=== PATIENT | female | born 1975 | race Caucasian/White ===

== ENCOUNTER 2018-04-12 11:48 | Emergency (ER) | payer SELFPAY ==
--- NOTE | 2018-04-12 12:06 | ED Physician Documentation ---
PD HPI LOWER EXT INJURY - Stated complaint Stated Complaint: LEFT ANKLE INJ - Chief complaint Chief Complaint: Ext Problem - History obtained from History obtained from: Patient - History of Present Illness PD HPI LOW EXT INJURY LOCATION: Left, Ankle (Almost 2 months ago she had a trip and fall at work. She injured her left ankle. It was slowly getting better and then started running on it again over the running. Most of the pain is over the medial joint line of the left ankle. She injured her knee at the time but that is all better as well.) Review of Systems Constitutional: reports: Reviewed and negative Nose: reports: Reviewed and negative Throat: reports: Reviewed and negative PD PAST MEDICAL HISTORY - Present Medications Home Medications: Ambulatory Orders Medication Instructions Recorded Confirmed Hydrocodone/Acetaminophen 1 - 2 each PO Q6H PRN #14 tablet 04/12/18 [Hydrocodon-Acetaminophen 5-325] Ibuprofen [Motrin] 800 mg PO Q8H PRN #30 tablet 04/12/18 - Allergies Allergies/Adverse Reactions: Allergies Allergy/AdvReac Type Severity Reaction Status Date / Time No Known Drug Allergies Allergy Verified 04/12/18 11:55 PD ED PE NORMAL - Vitals Vital signs reviewed: Yes - General General: Alert and oriented X 3, No acute distress - Extremities Extremities: Other (She is tender over the medial malleolus and just superior to that of the left ankle. There is no lateral tenderness or foot tenderness. No proximal fibular or knee tenderness. There is no significant swelling. Perfusion is normal.) - Neuro Neuro: Alert and oriented X 3, Normal speech Results - Vitals Vitals: Vital Signs - 24 hr 04/12/18 11:52 Temperature 34.4 C L Heart Rate 70 Respiratory 16 Rate Blood Pressure 126/68 O2 Saturation 100 Oxygen O2 Source Room air - Rads (name of study) L ankle Radiology: EMP read contemporaneously (Subacute oblique fracture of the distal tibia above the mortise and a subacute linear fracture, Rock B of the lateral malleolus.) PD MEDICAL DECISION MAKING - ED course ED course: This is a 43-year-old woman who injured herself almost 2 months ago and as it turns out broke her ankle which really only started hurting when she tried to start running on it again. There are good signs of healing on the x-ray so I think she can walk and bear weight in the boot pending orthopedic follow-up. She has a 5-day trip to [place] in the next few days, but she will not be skiing or doing anything very active. Departure - Departure Disposition: 01 Home, Self Care Clinical Impression: Bimalleolar ankle fracture Qualifiers: Encounter type: initial encounter Fracture type: closed Laterality: left Qualified Code(s): S82.842A - Displaced bimalleolar fracture of left lower leg, initial encounter for closed fracture Condition: Good Record reviewed to determine appropriate education?: Yes Prescriptions: Hydrocodone/Acetaminophen [Hydrocodon-Acetaminophen 5-325] 1 - 2 each PO Q6H PRN #14 tablet PRN Reason: pain Ibuprofen [Motrin] 800 mg PO Q8H PRN #30 tablet PRN Reason: PAIN &/OR FEVER Comments: As discussed it seems like he actually broke her ankle 2 months ago and you have been walking on it ever since, good for you. That said he should not run on it anymore. I think you can continue to walk and bear weight in the boot but she is to follow-up with an orthopedist near home on return from your upcoming trip. Take the copy of the x-rays on CD with you. Walk as little as possible and keep it elevated.
--- NOTE | 2018-04-12 12:52 | XRAY Report ---
Reason: L ankle inj Procedure Date: 04/12/2018 Accession Number: [id number] / [id number] Procedure: XR - Ankle 3 View LT CPT Code: FULL RESULT: EXAM: LEFT ANKLE RADIOGRAPHY EXAM DATE: 04/12/2018 12:34 PM. CLINICAL HISTORY: Left ankle injection 8 weeks ago with little interval improvement. Recent exacerbation of pain with resumption of running. COMPARISON: None. TECHNIQUE: 3 views. FINDINGS: Bones: There is a subacute nondisplaced oblique fracture distal tibial metaphysis with evidence of healing change (indistinctness of the fracture line, band-like trabecular density and focal bone periosteal new bone along the medial cortex at the fracture line). A similar incomplete transverse band of trabecular density is noted on the lateral radiograph of the distal tibia above the physis. There is also transverse band of trabecular density across the mid lateral malleolus; both of these additional areas are consistent with additional healing subacute fractures. Joints: Normal. No effusion. No subluxations. The ankle mortise is normally aligned. Soft Tissues: Normal. No soft tissue swelling. IMPRESSION: Subacute nondisplaced fractures as described above with healing changes. Results discussed in person with Dr. Milton at 1240 hrs. RADIA
[2018-04-12 13:05] VITALS: BP 124/66
== END 2018-04-12 13:04 | disposition home or self-care (01) ==
LOC: ED 11:48
DX: S82.842A Displaced bimalleolar fracture of left lower leg, initial encounter for closed fracture (principal); X58.XXXA Exposure to other specified factors, initial encounter; Y93.02 Activity, running; Z91.81 History of falling
CPT/HCPCS: 99283

== ENCOUNTER 2022-05-28 22:27 | Emergency (ER) | payer MEDICAID ==
--- NOTE | 2022-05-29 00:02 | ED Physician Documentation ---
History of Present Illness - Stated complaint Stated Complaint: COUGH - Chief complaint Chief Complaint: Resp - History obtained from History obtained from: Patient - Additonal information Additional information: HPI from patient. Patient has had cough x 2 weeks for which she saw PMD 5 days ago, was prescribed guaifenesin / codeine and proair MDI. Patient presents at this time due to sudden onset of right lower lateral chest pain. This began suddenly tonight when she was coughing. The pain is worse with movement as well as palpation. There is not a pleuritic component. She does not feel short of breath. Patient says she had a low-grade fever towards the beginning of this illness, but has not had a fever since approximately 10 days ago. Review of Systems Constitutional: denies: Fever Cardiac: reports: Chest pain / pressure. denies: Palpitations Respiratory: reports: Cough. denies: Dyspnea, Hemoptysis, Wheezing PD PAST MEDICAL HISTORY - Past Medical History Past Medical History: No - Past Surgical History Past Surgical History: No - Present Medications Home Medications: Ambulatory Orders Medication Instructions Recorded Confirmed Hydrocodone/Acetaminophen 1 - 2 each PO Q6H PRN #14 tablet 04/12/18 [Hydrocodon-Acetaminophen 5-325] Ibuprofen [Motrin] 800 mg PO Q8H PRN #30 tablet 04/12/18 - Allergies Allergies/Adverse Reactions: Allergies Allergy/AdvReac Type Severity Reaction Status Date / Time No Known Drug Allergies Allergy Verified 05/28/22 22:44 - Social History Does the pt smoke?: No Smoking Status: Never smoker Does the pt drink ETOH?: No Does the pt have substance abuse?: No - Immunizations Immunizations are current?: Yes PD ED PE NORMAL - Vitals Vital signs reviewed: Yes - General General: Alert and oriented X 3, No acute distress, Well developed/nourished - Cardiac Cardiac: RRR - Respiratory Respiratory: No respiratory distress, Other (course rhonchi right hemithorax) - Free text exam Free text exam: no crepitus right chest wall Results - Vitals Vitals: Vital Signs - 24 hr 05/28/22 05/28/22 05/29/22 22:38 23:48 00:18 Temperature 37.2 C Heart Rate 112 H 96 97 Respiratory 18 18 18 Rate Blood Pressure 122/79 117/71 111/76 O2 Saturation 96 100 96 Oxygen O2 Source Room air - Rads (name of study) chest xray with right ribs Radiology: Prelim report reviewed, See rad report PD Medical Decision Making - ED course Complexity details: reviewed results, re-evaluated patient, considered differential, d/w patient ED course: Chest x-ray is negative for rib fracture. There is no pneumothorax. There is an early right basilar infiltrate suggestive of an interstitial pneumonia. I discussed the results of the x-rays with the patient. Because the x-rays are suggestive of early right basilar interstitial pneumonia, she is given a dose of azithromycin to the emergency department and a prescription for 4 more days of 250 mg daily azithromycin is provided. We discussed options for medications for pain control, which is her chief co mplaint. Patient says she is allergic to codeine, with the allergy being hives. However, she is currently taking guaifenesin with codeine; she says that if she just takes half of the dose prescribed, she does not have allergy or untoward side effect. Of course, this is not providing adequate relief of the pain that she has been experiencing since earlier this evening. We discussed tramadol, Vicodin, and Percocet. She says she has had tramadol in the past, although has not found that it was particular helpful for pain. She does not recall ever having Vicodin nor Percocet. After further discussion, mutual decision reached to trial Vicodin for pain control, which would also have additional potential benefit of cough suppression. She is given a take-home pack of Vicodin, and a prescription for Vicodin is also provided. Return precautions discussed. Departure - Departure Disposition: 01 Home, Self Care Discharge Date/Time: 05/29/22 04:40
[2022-05-29 00:19] VITALS: BP 111/76
[2022-05-29] MEDS ORDERED: AZITHROMYCIN 250 MG TABLET PO ONE (03:10)
[2022-05-29] MEDS ORDERED: HYDROcod/ACET 5/325 Prepack 4 PO ONE (03:11)
[2022-05-29] MEDS ORDERED: methocarbamoL 500 MG TABLET PO ONE (03:11)
--- NOTE | 2022-05-29 09:15 | XRAY Report ---
PROCEDURE: Ribs w/PA Chest RT INDICATIONS: right chest pain TECHNIQUE: 3 views of the right ribs were acquired, along with a single view chest. COMPARISON: None FINDINGS: Surgical changes and devices: None. Bones and chest wall: No fractures or dislocations. No suspicious bony lesions. Overlying soft tis sues appear unremarkable. Lungs and pleura: Mild right basilar atelectasis and or infiltrate Mediastinum: Mediastinal contours appear normal. Heart size is normal. IMPRESSION: Mild right basilar atelectasis and or infiltrate No rib fracture Note: Final report is concordant with preliminary interpretation provided by [facility] Reviewed by: Billy Fatima MD on 05/29/2022 8:14 AM [place] Approved by: Billy Fatima MD on 05/29/2022 8:14 AM [facility] Station ID: [id number]
== END 2022-05-29 04:40 | disposition home or self-care (01) ==
LOC: ED 22:27
DX: R07.89 Other chest pain (principal); R05.9 Cough, unspecified
CPT/HCPCS: 71101; 99283; 99284; A9270

== ENCOUNTER 2023-05-15 06:45 | Emergency (ER) | payer MEDICAID ==
--- NOTE | 2023-05-15 07:02 | ED Physician Documentation ---
PD HPI ABD PAIN - Stated complaint Stated Complaint: ABD/BACK PX - Chief complaint Chief Complaint: Abd Pain - History obtained from History obtained from: Patient - History of Present Illness Timing - onset: Last night Timing - duration: Hours (9) Timing - details: Abrupt onset, Still present, Constant Quality: Cramping, Aching, Pain Location: Epigastric, LUQ Radiation: Upper back Improved by: No: Vomiting Worsened by: Eating Associated symptoms: Nausea, Vomiting, Diarrhea. No: Fever, Constipation Similar symptoms before: Has not had sx before Recently seen: Not recently seen Review of Systems Constitutional: denies: Fever, Chills Nose: denies: Rhinorrhea / runny nose, Congestion Throat: denies: Sore throat Respiratory: denies: Cough GI: denies: Diarrhea, Bloody / black stool : denies: Dysuria, Frequency PD PAST MEDICAL HISTORY - Past Medical History Past Medical History: Yes Cardiovascular: None Respiratory: None Endocrine/Autoimmune: None GI: GERD, Other (no prior pancreatic nor gallbladder problems. ) Other Past Medical History: Lyme disease - Past Surgical History Past Surgical History: Yes - Present Medications Home Medications: Ambulatory Orders Medication Instructions Recorded Confirmed Estradiol-Noreth 0.5 mg PO DAILY 05/15/23 Famotidine [Pepcid] 20 mg PO DAILY #20 tablet 05/15/23 Gabapentin [Neurontin] 100 mg PO BID 05/15/23 05/15/23 HYDROcod/ACETAM 5/325 [Meherrin 5/325] 1 ea PO Q6H PRN #18 tablet 05/15/23 Meloxicam [Mobic] 7.5 mg PO BID 10 Days #20 tablet 05/15/23 Ondansetron Odt [Zofran] 4 mg TL Q6H PRN #10 tablet 05/15/23 - Allergies Allergies/Adverse Reactions: Allergies Allergy/AdvReac Type Severity Reaction Status Date / Time No Known Drug Allergies Allergy Verified 05/15/23 06:55 - Living Situation Living Arrangement: reports: At home (she is visiting her parents this weekend, returning home today to [facility].) - Social History Does the pt smoke?: No Smoking Status: Never smoker Does the pt drink ETOH?: Yes ETOH Use: Beer (occasional 1-2 drinks, none daily. Had not had any over this weekend. ), Liquor Does the pt have substance abuse?: No - Immunizations Immunizations are current?: Yes - POLST Patient has POLST: No PD ED PE NORMAL - Vitals Vital signs reviewed: Yes - General General: Alert and oriented X 3, Well developed/nourished, Other (appears uncomfortable with guarding upper abd. ) - Neck Neck: Supple, no meningeal sign, No adenopathy - Cardiac Cardiac: RRR, No murmur - Respiratory Respiratory: No respiratory distress, Clear bilaterally - Abdomen Abdomen: Soft, Non distended, Other (tender left upper abd and epigastric mainly with local guarding and some percussion tenderness. RUQ itself is less tender. ). No: Normal bowel sounds (decreased) - Derm Derm: Normal color, Warm and dry - Extremities Extremities: No edema, No calf tenderness / cord - Neuro Neuro: Alert and oriented X 3, No motor deficit, Normal speech Results - Vitals Vitals: Vital Signs - 24 hr 05/15/23 05/15/23 05/15/23 06:50 08:50 10:00 Temperature 36.1 C L Heart Rate 86 57 L 60 Respiratory 16 16 16 Rate Blood Pressure 118/73 111/66 122/78 O2 Saturation 100 98 98 Oxygen O2 Source Room air - Labs Labs: Laboratory Tests 05/15/23 05/15/23 05/15/23 07:08 07:08 07:08 WBC 6.6 RBC 4.09 L Hgb 12.6 Hct 39.1 MCV 95.6 MCH 30.8 MCHC 32.2 RDW 12.2 Plt Count 229 MPV 9.4 Neut # (Auto) 3.8 Lymph # (Auto) 2.1 [place] # (Auto) 0.5 Eos # (Auto) 0.2 Baso # (Auto) 0.0 Absolute Nucleated RBC 0.00 Nucleated RBC % 0.0 Sodium 136 Potassium 3.5 Chloride 104 Carbon Dioxide 23 Anion Gap 9.0 BUN 17 Creatinine 0.7 Estimated GFR (MDRD) 89 Glucose 109 H Calcium 9.0 Total Bilirubin 0.4 AST 17 ALT 17 Alkaline Phosphatase 66 Troponin I High Sens 2.3 Total Protein 6.9 Albumin 4.2 Globulin 2.7 Albumin/Globulin Ratio 1.6 Triglycerides Lipase 129 H Urine Color Urine Clarity Urine pH Ur Specific [place] Urine Protein Urine Glucose (UA) Urine Ketones Urine Occult Blood Urine Nitrite Urine Bilirubin Urine Urobilinogen Ur Leukocyte Esterase Ur Microscopic Review Urine Culture Comments 05/15/23 05/15/23 07:08 08:15 WBC RBC Hgb Hct MCV MCH MCHC RDW Plt Count MPV Neut # (Auto) Lymph # (Auto) [place] # (Auto) Eos # (Auto) Baso # (Auto) Absolute Nucleated RBC Nucleated RBC % Sodium Potassium Chloride Carbon Dioxide Anion Gap BUN Creatinine Estimated GFR (MDRD) Glucose Calcium Total Bilirubin AST ALT Alkaline Phosphatase Troponin I High Sens Total Protein Albumin Globulin Albumin/Globulin Ratio Triglycerides 67 Lipase Urine Color YELLOW Urine Clarity CLEAR Urine pH 6.0 Ur Specific [place] 1.010 Urine Protein NEGATIVE Urine Glucose (UA) NEGATIVE Urine Ketones NEGATIVE Urine Occult Blood NEGATIVE Urine Nitrite NEGATIVE Urine Bilirubin NEGATIVE Urine Urobilinogen 0.2 (NORMAL) Ur Leukocyte Esterase NEGATIVE Ur Microscopic Review NOT INDICATED Urine Culture Comments NOT INDICATED - Rads (name of study) abd/pelvic CT Relevant Findings:: Prelim report reviewed (normal pancreas. Mild fat stranding left splenic flexure area of colon c/w colitis. No diverticula noted. Gallbladder normal. ), EMP independent interpretation of test PD Medical Decision Making - ED course Complexity details: reviewed results (lipase some elevated at 127. Normal LFTs and alk phos. CT showing some LUQ colitis, which fits with her area of pain.), re-evaluated patient (no improvement with GI cocktail, so seeming less likely gastritis, and has other findings to account for pain: lipase and colitis on CT. She does not have reason for pancreatitis and CT does not show that. So I think just blip in the lab, and main Dx presume focal colitis. ), considered differential (consider gastritis, ulcer, pancreatic, but most pain is LUQ so diverticulitis or colitis. No diarrhea. ), d/w patient Departure - Departure Disposition: Home, Self Care Clinical Impression: Acute upper abdominal pain, Elevated lipase, Acute colitis, Pancreatitis Condition: Stable Record reviewed to determine appropriate education?: Yes Prescriptions: Meloxicam [Mobic] 7.5 mg PO BID 10 Days #20 tablet HYDROcod/ACETAM 5/325 [Meherrin 5/325] 1 ea PO Q6H PRN #18 tablet PRN Reason: Pain Famotidine [Pepcid] 20 mg PO DAILY #20 tablet Ondansetron Odt [Zofran] 4 mg TL Q6H PRN #10 tablet PRN Reason: Nausea / Vomiting Comments: Your CT scan showed some inflammation around the colon at the left upper corner (splenic flexure) which is the area that you are hurting. This can be a local inflammation. Sometimes it is an early infection. They did not comment on any diverticula or such in the area. Comment treatment for this initially would be clear to bland food diet and soft food. Mild stool softener such as docusate so there is less stool pressure and an anti-inflammatory such as ibuprofen/naproxen/meloxicam regularly for several days to week. To that add Tylenol every 4-6 hours if needed for pain and hydrocodone/acetaminophen if needed for worse pain. On your blood tests there was some elevation of your pancreatic enzyme called lipase. It was elevated to 127 with normal in our lab being up to 82 so only mildly elevated in comparison to what we see with a more significant pancreatitis. However some inflammation of the pancreas could also be causing your pain 2. There is no obvious cause for this based on your history. It may be just elevated mildly because of inflammation nearby in the colon as noted in the CT scan. The CT does not show any pancreatic inflammation. The treatment for mild pancreatitis would be clear liquid and decreased fat food for several days to week as well as the anti-inflammatories and pain medicine as noted above, so common treatment with the colitis. This sounds more likely to be from the colitis. If you have consistent pain despite the treatment or you have increasing pain, fever, vomiting, diarrhea or bloody stools to indicate worsening colitis, then follow-up with your primary care or the walk-in or such in your home area as we may need to add other medicines, in particular antibiotics. Guidelines typically suggest not doing antibiotics initially for mild cases. I could not find any of your pharmacies in the [facility] on my electronic prescribing list so I printed out the prescription for you. If there are issues with the pharmacy, have them call or show them this note and hopefully they would fill it since I was unable to do it electronically. Forms: PCP List Discharge Date/Time: 05/15/23 10:03
[2023-05-15 07:23] LABS: BASOPHILS % (AUTO) 0.5 %; EOSINOPHILS # (AUTO) 0.2 10^3/uL (0.0-0.7); EOSINOPHILS % (AUTO) 3.1 %; HCT - HEMATOCRIT 39.1 % (37.0-47.0); HGB - HEMOGLOBIN 12.6 g/dL (12.0-16.0); LYMPHOCYTES # (AUTO) 2.1 10^3/uL (1.5-3.5); LYMPHOCYTES % (AUTO) 31.8 %; MEAN CORPUSCULAR HEMOGLOBIN 30.8 pg (27.0-31.0); MEAN CORPUSCULAR HGB CONC 32.2 g/dL (32.0-36.0); MEAN CORPUSCULAR VOLUME 95.6 fL (81.0-99.0); MEAN PLATELET VOLUME 9.4 fL (7.9-10.8); MONOCYTES # (AUTO) 0.5 10^3/uL (0.0-1.0); NEUTROPHILS # (AUTO) 3.8 10^3/uL (1.5-6.6); NEUTROPHILS % (AUTO) 57.3 %; PLT - PLATELET COUNT 229 10^3/uL (130-450); RED BLOOD COUNT 4.09 10^6/uL (4.20-5.40); RED CELL DISTRIBUTION WIDTH 12.2 % (12.0-15.0); WHITE BLOOD COUNT 6.6 x10^3/uL (4.8-10.8)
[2023-05-15] MEDS ORDERED: KETOROLAC 15 MG/ML VIAL IVP STA (07:26)
[2023-05-15] MEDS ORDERED: MAG HYDROX/AL HYDROX/SIMETH 30 ML UDC PO STA (07:26)
[2023-05-15] MEDS ORDERED: SODIUM CHLORIDE 0.9% 1,000 ML IV STA (07:26)
[2023-05-15] MEDS ORDERED: LIDOCAINE VISCOUS 2% 15 ML ORAL SYRINGE MM STA (07:26)
[2023-05-15 07:35] LABS: ALBUMIN 4.2 g/dL (3.2-5.5); ALBUMIN/GLOBULIN RATIO 1.6 (1.0-2.2); BILIRUBIN,TOTAL 0.4 mg/dL (0.2-1.0); CREATININE 0.7 mg/dL (0.6-1.3); POTASSIUM 3.5 mmol/L (3.5-4.5); TOTAL PROTEIN 6.9 g/dL (6.4-8.9)
[2023-05-15] MEDS ORDERED: iohexoL-300 100 ML VIAL ONE (07:46)
[2023-05-15] MEDS ORDERED: HYDROmorphone 0.5 MG/0.5 ML SYRINGE IVP STA (07:59)
[2023-05-15 08:37] LABS: BILIRUBIN,URINE NEGATIVE (NEGATIVE); GLUCOSE, URINE (UA) NEGATIVE (NEGATIVE); KETONES,URINE (UA) NEGATIVE (NEGATIVE); LEUKOCYTE ESTERASE, URINE NEGATIVE (NEGATIVE); NITRITE,URINE NEGATIVE (NEGATIVE); OCCULT BLOOD,URINE NEGATIVE (NEGATIVE); PROTEIN,URINE NEGATIVE (NEGATIVE); UROBILINOGEN,URINE 0.2 (NORMAL) E.U./dL (NORMAL)
[2023-05-15 08:38] LABS: CLARITY,URINE CLEAR (CLEAR)
--- NOTE | 2023-05-15 08:59 | CT Report ---
PROCEDURE: Abdomen/Pelvis W INDICATIONS: upper mid/left abd pain since last evening CONTRAST: Omni 300 100ml TECHNIQUE: After the administration of intravenous contrast, a CT scan of the abdomen and pelvis was performed. Images were recorded and evaluated at appropriate window settings. Reformats: coronal and sagittal. F or radiation dose reduction, the following was used: automated exposure control, adjustment of mA and /or kV according to patient size. COMPARISON: None. FINDINGS: Image quality: Diagnostic Lower chest: No basal effusions. Lung bases are unremarkable. Liver: Possible hepatic steatosis. Subcentimeter lesions are too small to characterize, possibly cyst s. Gallbladder and biliary system: Unremarkable, nondilated Pancreas: No ductal dilation Spleen: Nonenlarged Adrenals: No discrete nodule Kidneys: Subcentimeter lesions are too small to characterize, probably cysts. No solid mass. There is a cortical irregularity, probably scarring. No hydronephrosis. Vessels and lymph nodes: The main portal vein is patent. No abdominal aortic aneurysm. No pathologic lymph nodes by size criteria. Bowel and peritoneum: No evidence of small bowel obstruction. No drainable fluid collection or pathol ogic ascites. There is mild fat stranding in the left upper quadrant surrounding the splenic flexure. Overall fecal loading is moderate. Nondilated appendix. Body wall: Unremarkable Pelvis: Bladder is unremarkable and underdistended, not well evaluated. Reproductive organs are also not evaluated on CT, no gross abnormality. Bones: No acute or suspicious osseous finding. Partially visualized, probably old right anterior rib fracture. IMPRESSION: No acute abdominopelvic abnormality. Mild fat stranding surrounding the colon around the splenic flex ure, probably infectious/inflammatory. Consider colonoscopy correlation if clinically indicated. Other findings as above. Reviewed by: Raimundo Weiner MD on 05/15/2023 8:57 AM [facility] Approved by: Raimundo Weiner MD on 05/15/2023 8:57 AM PST Station ID: [id number]
[2023-05-15 09:07] VITALS: O2SAT 98
[2023-05-15] MEDS ORDERED: iohexoL-300 100 ML VIAL IVP ONE (10:04)
[2023-05-15 10:10] VITALS: BP 122/78
== END 2023-05-15 10:03 | disposition home or self-care (01) ==
LOC: ED 06:45
DX: K52.9 Noninfective gastroenteritis and colitis, unspecified (principal); K85.90 Acute pancreatitis without necrosis or infection, unspecified; R74.8 Abnormal levels of other serum enzymes
CPT/HCPCS: 36415; 74177; 80053; 81003; 83690; 84478; 84484; 85025; 93005; 96374; 99283; 99284; A9270; Q9967; 81001; 87086